=== PATIENT | female | born 1970 | race African-American/Black ===

== ENCOUNTER 2016-07-28 19:26 | Emergency (ER) | payer OTHER ==
[~2016-07-28 19:26] MED LIST: ALBU17I INH; AMLO5TAB22 PO; CARV25TA PO; CHLO25TA24 PO; DICL75 PO; DUONSOL2 NEB; ENAL10 PO; FERR324T4 PO; LISI2.5T55 PO; NOVOLOGP2 SQ; VITA-13 PO
[2016-07-28 19:29] VITALS: BP 189/100; PULSE 82; RESP 14; TEMP 98.2; O2SAT 97
[2016-07-28] MEDS ORDERED: CARV25TA PO (20:21)
[2016-07-28] MEDS ORDERED: NOVOLOGP2 SQ (20:21)
[2016-07-28] MEDS ORDERED: INSU1INJ14 SQ (20:21)
[2016-07-28] MEDS ORDERED: LISI2.5T3 PO (20:21)
[2016-07-28] MEDS ORDERED: AMLO5TAB2 PO (20:21)
[2016-07-28] MEDS ORDERED: MOBI15TA PO (20:25)
[2016-07-28] MEDS ORDERED: CYCL1TAB29 PO (20:25)
--- NOTE | 2016-07-28 20:25 | PD ---
HPI Chief Complaint: Pain: Acute or Chronic Time Seen by Provider: 20:23 Travel History International Travel<30 days: No Contact w/Intl Traveler<30days: No Traveled to known affect area: No History of Present Illness HPI Patient is a 46-year-old female presenting to emergency for evaluation of left elbow pain. Patient states it's been painful and swollen for week and a half. He reports pain is an 8 out of 10. She denies any injury or trauma but does repetitive movements at work. She states her elbow was sore and aching. Patient reports a history of hypertension, she did not take her blood pressure medication today. She denies any other complaints at this time. PFSH Past Medical History Hx Anticoagulant Therapy: No Arthritis: Yes Asthma: Yes Autoimmune Disease: No Blood Disorders: No Anxiety: No Depression: No Heart Rhythm Problems: No Cancer: No Cardiovascular Problems: No High Cholesterol: No Chemotherapy: No Chest Pain: No Congestive Heart Failure: No COPD: No Cerebrovascular Accident: No Coronary Artery Disease: Yes Diabetes: Yes Patient Takes Glucophage: No Diminished Hearing: No Endocrine: Yes Gastrointestinal Disorders: No GERD: Yes Glaucoma: No Genitourinary: No Headaches: Yes Hepatitis: No Hiatal Hernia: No Hypertension: Yes Immune Disorder: No Kidney Stones: No Medical other: Yes (GERD, ARTHRITIS) Musculoskeletal: Yes Neurologic: No Psychiatric: No Reproductive: No Respiratory: No Immunizations Current: Yes Migraines: Yes Myocardial Infarction: No Radiation Therapy: No Renal Failure: No Seizures: No Sickle Cell Disease: No Sleep Apnea: No Thyroid Disease: No Ulcer: Yes ?: Not Menopausal: Yes Ovarian Cysts: Yes Past Surgical History Abdominal Surgery: Yes (LYSIS ADHESIONS ) AICD: No Arteriovenous Shunt: No Cardiac Surgery: No Ear Surgery: No Endocrine Surgery: No Eye Surgery: No Genitourinary Surgery: Yes (BLADDER TACKING X3) Gynecologic Surgery: Yes (HYSTERECTOMY) Hysterectomy: Yes Insulin Pump: No Joint Replacement: No Neurologic Surgery: No Oral Surgery: Yes (TEETH EXTRACTED) Pacemaker: No Thoracic Surgery: No Other Surgery: Yes Family History Family Myocardial Infarction: Yes (GRANDMOTHER) Social History Alcohol Use: No Tobacco Use: No Substance Use: No Allergies-Medications (Allergen,Severity, Reaction): Coded Allergies: Tylox (Verified Allergy, Severe, Nausea/Vomiting, 07/28/16) Cipro (Verified Adverse Reaction, Severe, vomiting, headache, 07/28/16) Percocet (Verified Adverse Reaction, Severe, HEADACHE, N&V, 07/28/16) DENIES ALLERGY 12/26/10 Reported Meds & Prescriptions Reported Meds & Active Scripts Active Flexeril (Cyclobenzaprine HCl) 10 Mg Tab 10 Mg PO TID PRN 10 Days Mobic (Meloxicam) 15 Mg Tab 15 Mg PO DAILY 10 Days Reported Tresiba Flextouch Pen Inj (Insulin Degludec Inj) 300 unit/3 ML Pen Unknown Dose SQ TID Novolog Inj (Insulin Aspart) 1,000 Unit/10 Ml Vial 17 Units SQ DAILY Lisinopril 2.5 Mg Tab 2.5 Mg PO DAILY Carvedilol 25 Mg Tab 25 Mg PO BID Amlodipine (Amlodipine Besylate) 5 Mg Tab 5 Mg PO DAILY Review of Systems Except as stated in HPI: all other systems reviewed are Neg Musculoskeletal: Positive: Myalgias, Edema, Pain Physical Exam Narrative GENERAL: Well-nourished, well-developed patient. SKIN: Focused skin assessment warm/dry. HEAD: Normocephalic. EYES: No scleral icterus. No injection or drainage. NECK: Supple, trachea midline. No JVD or lymphadenopathy. CARDIOVASCULAR: Regular rate and rhythm without murmurs, gallops, or rubs. RESPIRATORY: Breath sounds equal bilaterally. No accessory muscle use. GASTROINTESTINAL: Abdomen soft, non-tender, nondistended. MUSCULOSKELETAL: No cyanosis, or edema. Full range of motion in left elbow, tenderness to palpation on lateral epicondyle. Positive radial pulse, brisk and less than 3 second capillary refill. BACK: Nontender without obvious deformity. No CVA tenderness. Data Data Last Documented VS Vital Signs Date Time Temp Pulse Resp B/P Pulse Ox O2 Delivery O2 Flow Rate FiO2 07/28/16 19:29 98.2 82 14 189/100 97 Room Air Orders ^ Marc Bandage (07/28/16 20:25) MDM Medical Decision Making Medical Screen Exam Complete: Yes Emergency Medical Condition: Yes Interpretation(s) Vital Signs Date Time Temp Pulse Resp B/P Pulse Ox O2 Delivery O2 Flow Rate FiO2 07/28/16 19:29 98.2 82 14 189/100 97 Room Air Differential Diagnosis DVT versus strain versus spasm versus discogenic pain versus tenderness although versus other Narrative Course Patient is a 46-year-old female presenting to emergency department for evaluation of left elbow pain. Physical examination is most consistent with tennis elbow, this is reinforced by the fact the patient does repetitive movements at work with that arm. She has not taken anything to alleviate the pain. Emanation does not appear consistent with a DVT, there is no obvious swelling noted to her arm. Patient is neurovascularly intact. Patient will be given prescriptions for anti-inflammatory medication as well as a muscle relaxer. She will be placed in Marc wrap for support. She was encouraged to follow-up with her primary doctor for any new or worsening symptoms, she can come back to the emergency department for reevaluation if needed. He verbalized understanding of instructions. Patient is stable for discharge. Diagnosis Primary Impression: Lateral epicondylitis (tennis elbow) Qualified Code: M77.12 - Lateral epicondylitis of left elbow Additional Impression: Hypertension Qualified Code: I10 - Essential hypertension Referrals: Primary Care Physician Patient Instructions: General Instructions, Hypertension (DC), Tennis Elbow ( GEN), Tennis Elbow Exercises (GEN) Additional Instructions: Follow-up with your primary doctor Continue range of motion exercises Take medications as directed Take your blood pressure medications as prescribed, do not skip doses Return to emergency department for any new or worsening symptoms Med/Other Pt SpecificInfo: Prescription(s) given Scripts Cyclobenzaprine (Flexeril)10 Mg Tab10 Mg PO TID PRN (MUSCLE SPASM) 10 Days Ref 0 Prov:Fabiola Rich 07/28/16 Meloxicam (Mobic)15 Mg Tab15 Mg PO DAILY 10 Days Ref 0 Prov:Fabiola Rich 07/28/16 Disposition: 01 DISCHARGE HOME Condition: Stable Fabiola Rich July 28, 2016 20:25
== END 2016-07-28 20:39 | disposition home or self-care (01) ==
LOC: NEPD 19:26
DX: M77.12 Lateral epicondylitis, left elbow (principal); I10 Essential (primary) hypertension
CPT/HCPCS: 99284

== ENCOUNTER 2016-11-06 18:33 | Emergency (ER) | payer OTHER ==
[~2016-11-06] VITALS: Ht 175.3 cm; Wt 75.0 kg
[~2016-11-06 18:33] MED LIST changes: -ALBU17I INH; +AMLO5TAB2 PO; -AMLO5TAB22 PO; -CHLO25TA24 PO; +CYCL1TAB29 PO; -DICL75 PO; -DUONSOL2 NEB; -ENAL10 PO; -FERR324T4 PO; +INSU1INJ14 SQ; +LISI2.5T3 PO; -LISI2.5T55 PO; +MOBI15TA PO; -VITA-13 PO
[2016-11-06 18:36] VITALS: BP 160/90; PULSE 72; RESP 20; TEMP 98.4; O2SAT 99
--- NOTE | 2016-11-06 19:19 | RADRPT ---
EXAM DATE/TIME: 11/06/2016 19:18 [facility] COMPARISON: WRIST LEFT COMPLETE ([id number]), November 03, 2014, 13:57. INDICATIONS : Left wrist pain after hyperextended. MEDICAL HISTORY : None. SURGICAL HISTORY : None. ENCOUNTER: Initial ACUITY: 1 day PAIN SCORE: 9/10 LOCATION: Left distal Wrist FINDINGS: Three view examination of the left wrist demonstrates no soft tissue swelling, dislocation, or fractu re. The carpal bones are in normal alignment. A small well-corticated accessory ossification center is again noted along the tip of the ulnar styloid. The joint spaces are maintained. Bony mineraliza tion is normal. CONCLUSION: Negative stable study. Gage Bella MD on November 06, 2016 at 19:16 Board Certified Radiologist. This report was verified electronically.
[2016-11-06] MEDS ORDERED: VITA1000 PO (19:28)
[2016-11-06] MEDS ORDERED: SERT-129 PO (19:28)
[2016-11-06] MEDS ORDERED: NAPR500T PO (19:45)
--- NOTE | 2016-11-06 19:45 | PD ---
HPI Chief Complaint: Injury Time Seen by Provider: 18:58 Travel History International Travel<30 days: No Contact w/Intl Traveler<30days: No Traveled to known affect area: No History of Present Illness HPI This is a 46 year old female who presents to the emergency department with 2 days of wrist pain, constant, moderate severity, associated with swelling ever since she was playing with her son and her wrist got pushed back. She also pushes carts at work all day and was pushing carts today and felt like it was getting worse. PFSH Past Medical History Hx Anticoagulant Therapy: No Arthritis: Yes Asthma: Yes Autoimmune Disease: No Blood Disorders: No Anxiety: No Depression: No Heart Rhythm Problems: No Cancer: No Cardiovascular Problems: No High Cholesterol: No Chemotherapy: No Chest Pain: No Congestive Heart Failure: No COPD: No Cerebrovascular Accident: No Coronary Artery Disease: Yes Diabetes: Yes Patient Takes Glucophage: No Diminished Hearing: No Endocrine: Yes Gastrointestinal Disorders: No GERD: Yes Glaucoma: No Genitourinary: No Headaches: Yes Hepatitis: No Hiatal Hernia: No Hypertension: Yes Immune Disorder: No Kidney Stones: No Medical other: Yes (GERD, ARTHRITIS) Musculoskeletal: Yes Neurologic: No Psychiatric: No Reproductive: No Respiratory: No Immunizations Current: Yes Migraines: Yes Myocardial Infarction: No Radiation Therapy: No Renal Failure: No Seizures: No Sickle Cell Disease: No Sleep Apnea: No Thyroid Disease: No Ulcer: Yes Tetanus Vaccination: > 5 Years Influenza Vaccination: Yes ?: Not Menopausal: Yes Ovarian Cysts: Yes Past Surgical History Abdominal Surgery: Yes (LYSIS ADHESIONS ) AICD: No Appendectomy: Yes Arteriovenous Shunt: No Cardiac Surgery: No Ear Surgery: No Endocrine Surgery: No Eye Surgery: No Genitourinary Surgery: Yes (BLADDER TACKING X3) Gynecologic Surgery: Yes (HYSTERECTOMY) Hysterectomy: Yes Insulin Pump: No Joint Replacement: No Neurologic Surgery: No Oral Surgery: Yes (TEETH EXTRACTED) Pacemaker: No Thoracic Surgery: No Tonsillectomy: Yes Other Surgery: Yes Family History Family Myocardial Infarction: Yes (GRANDMOTHER) Social History Alcohol Use: No Tobacco Use: No Substance Use: No Allergies-Medications (Allergen,Severity, Reaction): Coded Allergies: acetaminophen (Unverified Allergy, Severe, Nausea/Vomiting, 11/06/16) DENIES ALLERGY 12/26/10 oxycodone (Unverified Allergy, Severe, Nausea/Vomiting, 11/06/16) DENIES ALLERGY 12/26/10 ciprofloxacin (Unverified Adverse Reaction, Severe, vomiting, headache, 11/06/16) Reported Meds & Prescriptions Reported Meds & Active Scripts Active Mobic (Meloxicam) 15 Mg Tab 15 Mg PO DAILY 10 Days Reported Sertraline (Sertraline HCl) 100 Mg Tab 100 Mg PO DAILY Vitamin D-1000 (Cholecalciferol) 1,000 Unit Tab 1,000 Units PO DAILY Tresiba Flextouch Pen Inj (Insulin Degludec Inj) 300 unit/3 ML Pen Unknown Dose SQ TID Novolog Inj (Insulin Aspart) 1,000 Unit/10 Ml Vial 17 Units SQ DAILY Lisinopril 2.5 Mg Tab 2.5 Mg PO DAILY Carvedilol 25 Mg Tab 25 Mg PO BID Amlodipine (Amlodipine Besylate) 5 Mg Tab 5 Mg PO DAILY Review of Systems Except as stated in HPI: all other systems reviewed are Neg Physical Exam Narrative GENERAL: Well-appearing, no acute distress, nontoxic SKIN: Warm and dry. HEAD: Atraumatic. Normocephalic. ENT: No nasal bleeding or discharge. Moist mucous membranes MUSCULOSKELETAL: Swelling of the left wrist, tender to palpation over the radial aspect of the left wrist with some pain with wrist extension and flexion. NEUROLOGICAL: Awake and alert. No obvious cranial nerve deficits. Motor grossly within normal limits. Normal speech. Sensation and motor are intact in the median, ulnar and radial distributions of the left hand. Vascular: 2+ left radial pulse with normal capillary refill the left hand. PSYCHIATRIC: Appropriate mood and affect; insight and judgment normal. Data Data Last Documented VS Vital Signs Date Time Temp Pulse Resp B/P (MAP) Pulse Ox O2 Delivery O2 Flow Rate FiO2 11/06/16 18:36 98.4 72 20 160/90 (113) 99 Room Air Orders Orders Wrist, Complete ([id number]) (11/06/16 ) [facility] Medical Decision Making Medical Screen Exam Complete: Yes Emergency Medical Condition: Yes Interpretation(s) Afebrile, no tachycardia, hypertensive Wrist x-ray: No acute process Differential Diagnosis Wrist sprain, distal radius fracture, neurovascular injury Narrative Course This is a 46-year-old female who presents to the emergency department with pain in her left wrist following an injury yesterday. Patient has some swelling along the left wrist with a normal neurovascular exam. X-rays reassuring but no evidence of fracture. Patient will be discharged home with instructions to rest, ice, elevate and Marc wrap the wrist. She was told to follow-up with orthopedic in one to 2 weeks if it is not improving. Diagnosis Primary Impression: Wrist sprain Qualified Codes: S63.502A - Unspecified sprain of left wrist, initial encounter Referrals: Juancho Hall MD Patient Instructions: General Instructions Additional Instructions: If you develop numbness, weakness, tingling or severe pain of the wrist return to the emergency department. Follow up with an orthopedic physician if her symptoms are not improved in one week. Rest, ice, Marc wrap and elevate your arm. Take naproxen as needed for pain. Med/Other Pt SpecificInfo: Prescription(s) given Scripts Naproxen (Naproxen) 500 Mg Tab 500 MG PO BID Y for PAIN SCALE 4 TO 10, #20 TAB 0 Refills Prov: Kallie Tang MD 11/06/16 Disposition: 01 DISCHARGE HOME Condition: Stable Kallie Tang MD Nov 06, 2016 19:45
[2016-12-07] MEDS ORDERED: CYCL1TAB29 PO (15:42)
== END 2016-11-06 20:12 | disposition home or self-care (01) ==
LOC: NEPD 18:33
DX: S63.502A Unspecified sprain of left wrist, initial encounter (principal); X50.9XXA Other and unspecified overexertion or strenuous movements or postures, initial encounter
CPT/HCPCS: 73110; 99283

== ENCOUNTER 2016-12-07 13:41 | Emergency (ER) | payer OTHER ==
[~2016-12-07] VITALS: Ht 175.3 cm; Wt 72.0 kg
[~2016-12-07 13:41] MED LIST changes: -CYCL1TAB29 PO; +NAPR500T2 PO; +SERT-129 PO; +VITA1000 PO
[2016-12-07 13:57] VITALS: BP 198/92; PULSE 87; RESP 17; TEMP 97.8; O2SAT 99
[2016-12-07] MEDS ORDERED: SODIUM CHLOR 0.9% 1000 ML INJ 1,000 ML IV ONE (14:00)
[2016-12-07] MEDS ORDERED: SODIUM CHLORIDE 0.9% FLUSH 10 ML FLUSH IVF PRN (14:00)
[2016-12-07 14:07] VITALS: RESP 17; O2SAT 98
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
[2016-12-07] MEDS ORDERED: INSULIN HUMAN REGULAR 1,000 UNITS/10 ML VIAL SQ ONE (14:30)
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
[2016-12-07] MEDS ORDERED: CYCL10TA PO (15:42)
== END 2016-12-07 16:31 | disposition home or self-care (01) ==
LOC: NEPE 13:41
DX: S00.83XA Contusion of other part of head, initial encounter (principal); S16.1XXA Strain of muscle, fascia and tendon at neck level, initial encounter; M54.9 Dorsalgia, unspecified; E11.65 Type 2 diabetes mellitus with hyperglycemia; I10 Essential (primary) hypertension; V49.49XA Driver injured in collision with other motor vehicles in traffic accident, initial encounter; Y92.410 Unspecified street and highway as the place of occurrence of the external cause; J45.909 Unspecified asthma, uncomplicated
CPT/HCPCS: 70450; 70486; 71010; 72072; 72100; 72125; 72170; 96372; 99285; J1815; J7030

== ENCOUNTER 2017-03-28 23:21 | Emergency (ER) | payer OTHER ==
[~2017-03-28] VITALS: Ht 172.7 cm; Wt 75.0 kg
[~2017-03-28 23:21] MED LIST changes: +CYCL10TA PO; -MOBI15TA PO; -NAPR500T2 PO
[2017-03-28 23:23] VITALS: BP 193/93; PULSE 104; RESP 20; TEMP 98.8; O2SAT 100
--- NOTE | 2017-03-28 23:57 | PD ---
HPI Chief Complaint: Pain: Acute or Chronic Time Seen by Provider: 23:39 Travel History International Travel<30 days: No Contact w/Intl Traveler<30days: No Traveled to known affect area: No History of Present Illness HPI 47yo F with PMH of chronic back pain on pain management here with c/o left sided back pain that radiates down her left buttocks and to posterior left thigh. Denies any fever, fall, focal weakness or numbness, urinary complaints, chest pain, sob, n/v, abdominal pain. Pt takes lortab and has nerve stimulator but said her lortab did not help today. Pain is worst with movement. PFSH Past Medical History Hx Anticoagulant Therapy: No Arthritis: Yes Asthma: Yes Autoimmune Disease: No Blood Disorders: No Anxiety: No Depression: No Heart Rhythm Problems: No Cancer: No Cardiovascular Problems: Yes High Cholesterol: No Chemotherapy: No Chest Pain: No Congestive Heart Failure: No COPD: No Cerebrovascular Accident: No Coronary Artery Disease: Yes Diabetes: Yes Patient Takes Glucophage: No Diminished Hearing: No Endocrine: Yes Gastrointestinal Disorders: No GERD: Yes Glaucoma: No Genitourinary: No Headaches: Yes Hepatitis: No Hiatal Hernia: No Hypertension: Yes Immune Disorder: No Kidney Stones: No Medical other: Yes Musculoskeletal: Yes Neurologic: No Psychiatric: No Reproductive: No Respiratory: No Immunizations Current: Yes Migraines: Yes Myocardial Infarction: No Radiation Therapy: No Renal Failure: No Seizures: No Sickle Cell Disease: No Sleep Apnea: No Thyroid Disease: No Ulcer: Yes ?: Not Menopausal: Yes Ovarian Cysts: Yes Past Surgical History Abdominal Surgery: Yes (LYSIS ADHESIONS, 2 HERNIA REPAIRS) AICD: No Appendectomy: Yes Arteriovenous Shunt: No Cardiac Surgery: No Ear Surgery: No Endocrine Surgery: No Eye Surgery: No Genitourinary Surgery: Yes (BLADDER TACKING X3) Gynecologic Surgery: Yes Hysterectomy: Yes Insulin Pump: No Joint Replacement: No Neurologic Surgery: No Oral Surgery: Yes (TEETH EXTRACTED) Pacemaker: No Thoracic Surgery: No Tonsillectomy: Yes Other Surgery: Yes Family History Family Myocardial Infarction: Yes (GRANDMOTHER) Social History Alcohol Use: No Tobacco Use: No Substance Use: No Allergies-Medications (Allergen,Severity, Reaction): Coded Allergies: acetaminophen (Verified Adverse Reaction, Severe, Nausea/Vomiting, 03/28/17 ) DENIES ALLERGY 12/26/10 ciprofloxacin (Verified Adverse Reaction, Intermediate, vomiting, headache , 03/28/17) oxycodone (Verified Adverse Reaction, Intermediate, Nausea/Vomiting, ) Reported Meds & Prescriptions Reported Meds & Active Scripts Active Ibuprofen 600 Mg Tab 600 Mg PO Q8HR PRN Flexeril (Cyclobenzaprine HCl) 10 Mg Tab 10 Mg PO Q8HR PRN Reported Sertraline (Sertraline HCl) 100 Mg Tab 100 Mg PO DAILY Vitamin D-1000 (Cholecalciferol) 1,000 Unit Tab 1,000 Units PO DAILY Tresiba Flextouch Pen Inj (Insulin Degludec Inj) 300 unit/3 ML Pen Unknown Dose SQ TID Novolog Inj (Insulin Aspart) 1,000 Unit/10 Ml Vial 17 Units SQ DAILY Lisinopril 2.5 Mg Tab 2.5 Mg PO DAILY Carvedilol 25 Mg Tab 25 Mg PO BID Amlodipine (Amlodipine Besylate) 5 Mg Tab 5 Mg PO DAILY Review of Systems Except as stated in HPI: all other systems reviewed are Neg Physical Exam Narrative GENERAL: 47yo F in moderate distress. SKIN: Focused skin assessment warm/dry. HEAD: Atraumatic. Normocephalic. EYES: Pupils equal and round. No scleral icterus. No injection or drainage. ENT: No nasal bleeding or discharge. Mucous membranes pink and moist. NECK: Trachea midline. No JVD. CARDIOVASCULAR: Regular rate and rhythm. No murmur appreciated. RESPIRATORY: No accessory muscle use. Clear to auscultation. Breath sounds equal bilaterally. GASTROINTESTINAL: Abdomen soft, non-tender, nondistended. BACK: Multiple old scar. +TTP left paraspinal muscle. +TTP left gluteus shiv and posterior thigh. MUSCULOSKELETAL: No obvious deformities. No clubbing. No cyanosis. No edema. Sensation equal bilaterally. Distal pulses intact. NEUROLOGICAL: Awake and alert. No obvious cranial nerve deficits. Motor grossly within normal limits. Normal speech. PSYCHIATRIC: Appropriate mood and affect; insight and judgment normal. Data Data Last Documented VS Vital Signs Date Time Temp Pulse Resp B/P (MAP) Pulse Ox O2 Delivery O2 Flow Rate FiO2 03/28/17 23:23 98.8 104 20 193/93 (126) 100 Room Air Orders Orders Hip, Uni(Ap&Lat) W Ap Pelvis (03/28/17 ) Spine, Lumbar - Ltd (Ap & Lat) (03/28/17 ) Diazepam (Valium) (03/29/17 00:00) Morphine Inj (Morphine Inj) (03/29/17 00:00) Ed Discharge Order (03/29/17 00:43) [facility] Medical Decision Making Medical Screen Exam Complete: Yes Emergency Medical Condition: Yes Differential Diagnosis Sciatica vs. contusion vs. fracture vs. musculoskeletal pain Narrative Course 47yo F with left sided back pain that radiates down posterior gluteus and left thigh which seems more like sciatica to me. Pt denies any trauma, fever, focal weakness or numbness. Denies any IVDA. Pt does have chronic back pain and has nerve stimulator and on pain management. Pt is afebrile here. Pt given morphine 6mg IM and valium 5mg PO. Xray left hip negative. Xray of lumbar spine showed no acute findings. Pt reevaluated at bedside and pain has improved. Pt is to follow up with her pain management physician. Diagnosis Primary Impression: Sciatica Qualified Codes: M54.32 - Sciatica, left side Patient Instructions: General Instructions Departure Forms: Tests/Procedures Additional Instructions: Please follow up with your pain management and primary care physician in 2-3 days. Return to the ED if symptoms worsen. Med/Other Pt SpecificInfo: Prescription(s) given Scripts Ibuprofen (Ibuprofen) 600 Mg Tab 600 MG PO Q8HR Y for PAIN, #20 TAB 0 Refills Prov: Tami Arevalo DO 03/29/17 Disposition: 01 DISCHARGE HOME Condition: Stable Tami Arevalo DO Mar 28, 2017 23:57
[2017-03-29] MEDS ORDERED: DIAZEPAM 5 MG TAB PO ONE
[2017-03-29] MEDS ORDERED: MORPHINE SULFATE 8 MG/ML INJ IM ONE
--- NOTE | 2017-03-29 00:29 | RADRPT ---
EXAM DATE/TIME: 03/29/2017 00:01 [facility] COMPARISON: No previous studies available for comparison. INDICATIONS : Left hip pain. No known trauma. MEDICAL HISTORY : Diabetes mellitus type II. SURGICAL HISTORY : Spine stimulator. ENCOUNTER: Initial ACUITY: 2 days PAIN SCORE: 10/10 LOCATION: Left hip. FINDINGS: Examination of the left hip was performed with AP Pelvis. The primary and secondary trabecular patte rn of the femoral neck is intact. The hip joint is of normal width without significant sclerosis or bony hypertrophy. The acetabulum is grossly intact. CONCLUSION: Negative exam. Vitaly Florian MD on March 29, 2017 at 0:22 Board Certified Radiologist. This report was verified electronically.
--- NOTE | 2017-03-29 00:30 | RADRPT ---
EXAM DATE/TIME: 03/29/2017 00:02 [facility] COMPARISON: SPINE LUMBAR LTD (AP & LAT), December 07, 2016, 14:44. INDICATIONS : Lower back pain. No known trauma. MEDICAL HISTORY : Cardiovascular disease. Hypertension. Diabetes mellitus type 2. SURGICAL HISTORY : Spine stimulator. ENCOUNTER: Initial ACUITY: 2 days PAIN SCORE: 10/10 LOCATION: Bilateral chest FINDINGS: Two view examination was performed. There are five non-rib bearing vertebral bodies. The vertebral bodies are in normal alignment without evidence of subluxation or scoliosis. The disc spaces are annemarie ntained. The pedicles are intact. Mild facet joint hypertrophy L4-S1 with a pars defect. Stimulato r electrode leads in the lower lumbar region bilaterally and ascending into the thoracic region. Bon y mineralization is normal. No fracture is identified. CONCLUSION: No acute findings. Vitaly Florian MD on March 29, 2017 at 0:27 Board Certified Radiologist. This report was verified electronically.
[2017-03-29] MEDS ORDERED: IBUP-232 PO (00:43)
== END 2017-03-29 01:10 | disposition home or self-care (01) ==
LOC: NEPD 23:21
DX: M54.32 Sciatica, left side (principal); M19.90 Unspecified osteoarthritis, unspecified site; J45.909 Unspecified asthma, uncomplicated; I25.10 Atherosclerotic heart disease of native coronary artery without angina pectoris; E11.9 Type 2 diabetes mellitus without complications; K21.9 Gastro-esophageal reflux disease without esophagitis; I10 Essential (primary) hypertension; Z79.899 Other long term (current) drug therapy; Z88.5 Allergy status to narcotic agent
CPT/HCPCS: 72100; 73502; 96372; 99284; J2270